=== PATIENT | female | born 1995 | race Two or more races ===

== ENCOUNTER 2018-10-02 15:24 | Emergency (ER) | payer MEDICAID ==
--- NOTE | 2018-10-02 16:33 | ED Physician Chart ---
ED Chief Complaint/HPI - Patient Information Date Seen:: 10/02/18 Time Seen:: 15:30 Chief Complaint:: Sore Throat History of Present Illness:: onset x 3 days of fever, S/T, cough, and congestion; pt denies trauma, LOC, ALOC , AMS, H/As, E/As, neck pain, C/P, SOB, Abd. 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 Allergies:: Allergies Allergy/AdvReac Type Severity Reaction Status Date / Time No Known Allergies Allergy Verified 10/02/18 15:32 Vitals:: Vital Signs - 8 hr 10/02/18 10/02/18 15:32 15:51 Temp 97.7 F 97.7 F HR 99 99 RR 18 18 BP 130/67 130/67 O2 Sat % 100 Historian:: Patient, Family Member Review:: Nurse's Note Reviewed ED Review of Systems - Review of Systems General/Constitutional: Fever, No chills, No weight loss, No weakness, No diaphoresis, No edema, No loss of appetite Skin: No skin lesions, No rash, No bruising Head: No headache, No light-headedness Eyes: No loss of vision, No pain, No diplopia ENT: No earache, Nasal drainage, Sore throat, No tinnitus Neck: No neck pain, No swelling, No thyromegaly, No stiffness, No mass noted Cardio Vascular: No chest pain, No palpitations, No PND, No orthopnea, No edema Pulmonary: No SOB, Cough, No sputum, No wheezing GI: No nausea, No vomiting, No diarrhea, No pain, No melena, No hematochezia, No constipation, No hematemesis G/U: No dysuria, No frequency, No hematuria 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, No abnormal vaginal bleed, No contraction Musculoskeletal: No bone or joint pain, No back pain, No muscle pain Endocrine: No polyuria, No polydipsia Psychiatric: No prior psych history, No depression, No anxiety, No suicidal ideation, No homicidal ideation, No auditory hallucination, No visual hallucination Hematopoietic: No bruising, No lymphadenopathy Allergic/Immuno: No urticaria, No angioedema Neurological: No syncope, No focal symptoms, No weakness, No paresthesia, No headache, No seizure, No dizziness, No confusion, No vertigo ED Past Medical History - Past Medical History Obtainable: Yes Past Medical History: No significant medical hx Family History: None Social History: Non Smoker, No Alcohol, No Drug Use, Single, Lives With Parents Surgical History: None Psychiatricy History: None Medication: Reviewed Family Medical History - Family Member Mother Ethnicity: Living Status: Still Living Hx Family Diabetes: Yes ED Physical Exam - Physical Examination General/Constitutional: Awake, Well-developed, well-nourished, Alert, No distress, GCS 15, Non-toxic appearing, Ambulatory Head: Atraumatic Eyes: Lids, conjuctiva normal, PERRL, EOMI Skin: Nl inspection, No rash, No skin lesions, No ecchymosis, Well hydrated, No lymphadenopathy ENMT: External ears, nose nl, TM canals nl, Nasal exam nl, Lips, teeth, gums nl , Tonsils nl Other ENMT comments:: Pharynx: Injected; no exudates; no abscesses; no FBs; no airway obstruction; + Nasal Congestion Neck: Nontender, Full ROM w/o pain, No JVD, No nuchal rigidity, No bruit, No mass, No stridor Other Neck comments:: Supple; no meningeal signs; no cervical tenderness; no bruits Respiratory: Nl effort/Exclusion, Clear to Auscultation, No Wheeze/Rhonchi/Rales Cardio Vascular: RRR, No murmur, gallop, rubs, NL S1 S2, Carotid/Femoral/Distal pulses equal bilaterally GI: No tenderness/rebounding/guarding, No organomegaly, No hernia, Normal BS's, Nondistended, No mass/bruits, No McBurney tenderness, Rectum exam nl Other GI comments:: no pulsatile masses; good Bowel Sounds; + Distention 2ndary to 5 Months IUP; good FHTs; no Vaginal Bleeding; no pelvic tenderness/pain : No CVA tenderness Extremities: No tenderness or effusion, Full ROM, normal strength in all extremities, No edema, Normal digits & nails Neuro/Psych: Alert/oriented, DTR's symmetric, Normal sensory exam, Normal motor strength, Judgement/insight normal, Mood normal, Normal gait, No focal deficits Other Neuro/Psych comments:: no focal signs Misc: Normal back, No paraspinal tenderness ED Septic Shock - . Is Septic Shock (SBP<90, OR Lactate>4 mmol\L) present?: No - <6hrs of presentation: Vital Signs: Vital Signs - 8 hr 10/02/18 10/02/18 15:32 15:51 Temp 97.7 F 97.7 F HR 99 99 RR 18 18 BP 130/67 130/67 O2 Sat % 100 ED Reassessment (Disposition) - Reassessment Reassessment:: pt tolerated po fluids well in ER; pt is asymptomatic upon discharge Reassessment Condition:: Improved - Diagnosis Diagnosis:: Dx: Sore Throat; Pharyngitis; Cough; Bronchitis; Congestion; Sinusitis; ; IUP; Fever; URI - Aftercare/Follow up Instructions Aftercare/Follow-Up Instructions:: Counseled pt regarding lab results/diagnosis & need follow up, Refer to Discharge Instructions, Counseled pt & family regarding lab results/diagnosis & need follow up Medication Prescribed:: Rx: Amoxicillin 500mg po tid x 10 days; Tylenol 500mg po qid prn fever/pain; Salt Water Gargles; Cool Mist Vaporizer; take medications as prescribed; encourage fluids - Patient Disposition Discharge/Transfer:: Home Condition at Disposition:: Stable, Improved (RTER prn if existing s/s reoccur and/or get worse and/or any other new s/s occur; ACIs given for all above Dx; Refer to OB-LAB SUPPORT SERVICE TECH Specialist/ENT Specialist/Apartment Maintenance BILLY; F/U with PMD in one day or prn; RTER prn if concerned)
== END 2018-10-02 16:05 | disposition home or self-care (01) ==
LOC: ER 15:24
DX: O99.512 Diseases of the respiratory system complicating pregnancy, second trimester (principal); J40 Bronchitis, not specified as acute or chronic; J06.9 Acute upper respiratory infection, unspecified; J32.9 Chronic sinusitis, unspecified; Z3A.00 Weeks of gestation of pregnancy not specified
CPT/HCPCS: Z7502